=== PATIENT | male | born 1965 | race Asian ===

== ENCOUNTER → 2020-09-24 11:33 | Outpatient (CLI) | payer OTHER, SELFPAY ==
[2020-09-24] MEDS: COVID-19 VACC #1, MRNA(MOD) 100 MCG/0.5 ML VIAL IM (11:42)
== END ==
PROVIDERS: Visit Provider Internal Medicine
DX: Z23 Encounter for immunization (principal)
CPT/HCPCS: 0011A; 91301

== ENCOUNTER → 2020-10-22 14:00 | Outpatient (CLI) | payer OTHER, SELFPAY ==
[2020-10-22] MEDS: COVID-19 VACC #2, MRNA(MOD) 100 MCG/0.5 ML VIAL IM (14:11)
== END ==
PROVIDERS: Visit Provider Internal Medicine
DX: Z23 Encounter for immunization (principal)
CPT/HCPCS: 0012A; 91301